=== PATIENT | female | born 1960 | race Two or more races ===

== ENCOUNTER 2019-04-29 15:28 | Emergency (ER) | payer BC ==
[~2019-04-29] VITALS: Ht 157.5 cm; Wt 49.9 kg
--- NOTE | 2019-04-29 16:19 | PHYS DOC ---
Past Medical History Past Medical History: No Pertinent History Past Surgical History: No Surgical History Alcohol Use: None Drug Use: None Adult General Chief Complaint Chief Complaint: CHEST PAIN HPI HPI Patient is a 58 year old [femalewho presents with [right chest wall and right upper quadrant pain, worsening for the past 2 days. Patient reports she has had little bit of nausea on and off for the past 2 days, has not had any vomiting. Reports her pain initially seemed to coming go, but over the last day it has gotten worse is constant. Denies fever, denies recent illness, denies cough. Reports pain seems to increase and when she takes a deep breath, localized on her right chest wall, under her right breast. She has taken ibuprofen for this, which has helped a little bit. Last dose approximately one hour prior to coming to the emergency room. The states she does lift heavy a boxes at work, does not think she pulled anything, but is not sure what is causing her discomfort. States she has never had this problem in the past states no change in the discomfort associated with time of day or after eating.] Review of Systems Review of Systems Constitutional: Denies fever or chills [] Eyes: Denies change in visual acuity, redness, or eye pain [] HENT: Denies nasal congestion or sore throat [] Respiratory: Denies cough or shortness of breath states taking a deep breath causes her to feel short of breath, because of the pain[] Cardiovascular: No additional information not addressed in HPI [] GI: Denies abdominal pain, vomiting, bloody stools or diarrhea, reports she is having some nausea [] : Denies dysuria or hematuria [] Musculoskeletal: Denies back pain or joint pain [] Integument: Denies rash or skin lesions [] Neurologic: Denies headache, focal weakness or sensory changes [] Endocrine: Denies polyuria or polydipsia [] All other systems were reviewed and found to be within normal limits, except as documented in this note. Allergies Allergies Allergies Coded Allergies Type Severity Reaction Last Updated Verified No Known Drug Allergies 04/29/19 No Physical Exam Physical Exam Constitutional: Well developed, well nourished, no acute distress, non-toxic appearance. [] HENT: Normocephalic, atraumatic, bilateral external ears normal, oropharynx moist, no oral exudates, nose normal. [] Eyes: PERRLA, EOMI, conjunctiva normal, no discharge. [] Neck: Normal range of motion, no tenderness, supple, no stridor. [] Cardiovascular:Heart rate regular rhythm, no murmur [] Lungs & Thorax: Bilateral breath sounds clear to auscultation [] Abdomen: Bowel sounds normal, soft, no tenderness, no masses, no pulsatile masses. Increased discomfort on palpation of her right quadrant, positive Lawrence sign[] Skin: Warm, dry, no erythema, no rash. [] Back: No tenderness, no CVA tenderness. [] Extremities: No tenderness, no cyanosis, no clubbing, ROM intact, no edema. [] Neurologic: Alert and oriented X 3, normal motor function, normal sensory function, no focal deficits noted. [] Psychologic: Affect normal, judgement normal, mood normal. [] Current Patient Data Vital Signs Vital Signs Date Time Temp Pulse Resp B/P (MAP) Pulse Ox O2 Delivery O2 Flow Rate FiO2 04/29/19 15:40 99.6 84 16 111/46 (67) 94 Room Air 99.6 Lab Values Laboratory Tests Test 04/29/19 15:45 04/29/19 16:25 White Blood Count 10.3 x10^3/uL (4.0-11.0) Red Blood Count 4.44 x10^6/uL (3.50-5.40) Hemoglobin 12.7 g/dL (12.0-15.5) Hematocrit 37.8 % (36.0-47.0) Mean Corpuscular Volume 85 fL (79-100) Mean Corpuscular Hemoglobin 29 pg (25-35) Mean Corpuscular Hemoglobin Concent 34 g/dL (31-37) Red Cell Distribution Width 13.1 % (11.5-14.5) Platelet Count 237 x10^3/uL (140-400) Neutrophils (%) (Auto) 63 % (31-73) Lymphocytes (%) (Auto) 26 % (24-48) Monocytes (%) (Auto) 10 % (0-9) H Eosinophils (%) (Auto) 1 % (0-3) Basophils (%) (Auto) 0 % (0-3) Neutrophils # (Auto) 6.5 x10^3uL (1.8-7.7) Lymphocytes # (Auto) 2.7 x10^3/uL (1.0-4.8) Monocytes # (Auto) 1.0 x10^3/uL (0.0-1.1) Eosinophils # (Auto) 0.1 x10^3/uL (0.0-0.7) Basophils # (Auto) 0.0 x10^3/uL (0.0-0.2) Sodium Level 140 mmol/L (136-145) Potassium Level 3.6 mmol/L (3.5-5.1) Chloride Level 103 mmol/L (98-107) Carbon Dioxide Level 28 mmol/L (21-32) Anion Gap 9 (6-14) Blood Urea Nitrogen 13 mg/dL (7-20) Creatinine 0.6 mg/dL (0.6-1.0) Estimated GFR (Cockcroft-Gault) 103.4 BUN/Creatinine Ratio 22 (6-20) H Glucose Level 97 mg/dL (70-99) Calcium Level 8.5 mg/dL (8.5-10.1) Total Bilirubin 0.5 mg/dL (0.2-1.0) Aspartate Amino Transferase (AST) 33 U/L (15-37) Alanine Aminotransferase (ALT) 41 U/L (14-59) Alkaline Phosphatase 86 U/L (46-116) Troponin I Quantitative < 0.017 ng/mL (0.000-0.055) Total Protein 7.6 g/dL (6.4-8.2) Albumin 3.8 g/dL (3.4-5.0) Albumin/Globulin Ratio 1.0 (1.0-1.7) Lipase 164 U/L (73-393) Urine Collection Type Unknown Urine Color Yellow Urine Clarity Clear Urine pH 6.0 Urine Specific [place] 1.010 Urine Protein Negative mg/dL (NEG-TRACE) Urine Glucose (UA) Negative mg/dL (NEG) Urine Ketones (Stick) Negative mg/dL (NEG) Urine Blood Negative (NEG) Urine Nitrite Negative (NEG) Urine Bilirubin Negative (NEG) Urine Urobilinogen Dipstick 1.0 mg/dL (0.2 mg/dL) Urine Leukocyte Esterase Small (NEG) Urine RBC 0 /HPF (0-2) Urine WBC 5-10 /HPF (0-4) Urine Squamous Epithelial Cells Few /LPF Urine Bacteria Few /HPF (0-FEW) Laboratory Tests 6/30/19 15:45 Laboratory Tests 04/29/19 15:45 EKG EKG @1540 Dr Duarte- normal EKG, no STEMI[] Radiology/Procedures Radiology/Procedures [] The inspiration is small. There is a mild airspace opacity in the right base. There is no pneumothorax or pleural effusion. The heart is not enlarged. Bilateral cervical ribs are noted. IMPRESSION: 1. Mild infiltrate in the right base. Follow-up to resolution is recommended. 2. Bilateral cervical ribs.. Electronically signed by: Guevara Maria MD (04/29/2019 5:14 PM) [facility] FINDINGS: Sonographic evaluation of the right upper quadrant was performed. The liver appears normal in parenchymal echotexture. There are no focal lesions. The gallbladder is partially decompressed but otherwise unremarkable without stones, pericholecystic fluid or wall thickening. There is no sonographic Lawrence sign. The common duct measures 4 mm. The visualized portions of the head and body of the pancreas reveal no abnormality. The right kidney measures 10.2 cm. Cortical thickness and echogenicity are preserved. There is no hydronephrosis. The visualized portions of the abdominal aorta and inferior vena cava are grossly patent and normal in caliber. IMPRESSION: 1. No cause for pain is identified sonographically. Electronically signed by: Guevara Maria MD (04/29/2019 5:13 PM) [facility] Course & Med Decision Making Course & Med Decision Making Pertinent Labs and Imaging studies reviewed. (See chart for details) [Discussed lab testing and imaging, with symptoms potentially from gall bladder, ribs, or pulmonary. Patient in agreement with testing plan, reports her pain is tolerable at this time, unless she has to take a deep breath. Following lab and imaging, gall bladder excluded. No fracture noted on ribs Vitals within normal limits, SpO2 99-100% with no reported SOA. Believe symptoms related to intercostal discomfort as discomfort increases on inspiration, and negative sonographic lawrence's. had reported some improvement in discomfort with NSAIDS, will plan to continue NSAIDs and follow up Discussed with patient noted mild infiltrate, may be related to her inability to take deep breath, is maintaining SpO2 99-100% without SOA, only discomfort on deep inspiration. ] Dragon Disclaimer Dragon Disclaimer This electronic medical record was generated, in whole or in part, using a voice recognition dictation system. Departure Departure Impression: Primary Impression: Costochondral chest pain Additional Impression: Chest wall pain Disposition: 01 HOME, SELF-CARE Condition: GOOD Patient Instructions: Costochondritis, [id number] Additional Instructions: [place] hablemos, claire ibuprofeno cada 8 horas. Quiero que usted se claire (3) pastillas de 200 mg cada 8 horas para los siguiente 7 melgar. Es mejor que los claire con comida asi no hace dolor de estomago tambien. Descansa de trabajo para un o dos melgar, depende en ortiz dolor Problem Qualifiers LETI CRUZ E ASHLYN Apr 29, 2019 16:19
[2019-04-29 16:23] LABS: BASO % 0 % (0-3); EOS # 0.1 x10^3/uL (0.0-0.7); EOS % 1 % (0-3); HEMATOCRIT 37.8 % (36.0-47.0); HEMOGLOBIN 12.7 g/dL (12.0-15.5); LYMPH # 2.7 x10^3/uL (1.0-4.8); LYMPH % 26 % (24-48); MEAN CORPUSCULAR HEMOGLOBIN 29 pg (25-35); MEAN CORPUSCULAR HGB CONC 34 g/dL (31-37); MEAN CORPUSCULAR VOLUME 85 fL (79-100); MONO % 10 % (0-9); NEUT # 6.5 x10^3uL (1.8-7.7); NEUT % 63 % (31-73); PLATELET COUNT 237 x10^3/uL (140-400); RED BLOOD COUNT 4.44 x10^6/uL (3.50-5.40); RED CELL DISTRIBUTION WIDTH 13.1 % (11.5-14.5); WHITE BLOOD COUNT 10.3 x10^3/uL (4.0-11.0)
[2019-04-29 16:46] LABS: CALCIUM 8.5 mg/dL (8.5-10.1); CREATININE 0.6 mg/dL (0.6-1.0); GFR 103.4; POTASSIUM 3.6 mmol/L (3.5-5.1)
[2019-04-29 16:52] LABS: BILIRUBIN,URINE NEGATIVE (NEG); CLARITY,URINE CLEAR; COLOR,URINE YELLOW; NITRITE,URINE NEGATIVE (NEG); PROTEIN,URINE NEGATIVE (NEG-TRACE)
[2019-04-29 16:57] LABS: ALBUMIN 3.8 g/dL (3.4-5.0); TOTAL BILIRUBIN 0.5 mg/dL (0.2-1.0); TOTAL PROTEIN 7.6 g/dL (6.4-8.2)
[2019-04-29 17:03] LABS: BACTERIA,URINE FEW /HPF (0-FEW); RBC,URINE 0 /HPF (0-2); SQUAMOUS EPITHELIAL CELL,UR FEW /LPF
--- NOTE | 2019-04-29 17:16 | RAD ---
EXAM: RIGHT UPPER QUADRANT ULTRASOUND. HISTORY: Right upper quadrant pain. COMPARISON: None. FINDINGS: Sonographic evaluation of the right upper quadrant was performed. The liver appears normal in parenchymal echotexture. There are no focal lesions. The gallbladder is partially decompressed but otherwise unremarkable without stones, pericholecystic fluid or wall thickening. There is no sonographic Lawrence sign. The common duct measures 4 mm. The visualized portions of the head and body of the pancreas reveal no abnormality. The right kidney measures 10.2 cm. Cortical thickness and echogenicity are preserved. There is no hydronephrosis. The visualized portions of the abdominal aorta and inferior vena cava are grossly patent and normal in caliber. IMPRESSION: 1. No cause for pain is identified sonographically. Electronically signed by: Guevara Maria MD (04/29/2019 5:13 PM) [facility]
--- NOTE | 2019-04-29 17:18 | RAD ---
EXAM: CHEST 2 VIEWS. HISTORY: Chest wall pain. COMPARISON: None. FINDINGS: Frontal and lateral views of the chest are obtained. The inspiration is small. There is a mild airspace opacity in the right base. There is no pneumothorax or pleural effusion. The heart is not enlarged. Bilateral cervical ribs are noted. IMPRESSION: 1. Mild infiltrate in the right base. Follow-up to resolution is recommended. 2. Bilateral cervical ribs.. Electronically signed by: Guevara Maria MD (04/29/2019 5:14 PM) [facility]
[2019-04-29 17:30] VITALS: BP 110/57
--- NOTE | 2019-04-30 07:25 | EKG ---
[facility] [address] [place] [address] Test Date: 2019-04-29 Test Time: 15:40:29 Pat Name: AKASH BLANK Department: Room: Gender: F Greens Picker: : [phone] Requested By: LETI CRUZ Order Number: [id number] Reading MD: Measurements Intervals [place] Rate: 82 P: 26 [place]: 150 QRS: 56 QRSD: 74 T: 28 QT: 352 QTc: 414 Interpretive Statements SINUS RHYTHM NORMAL ECG RI6.01 Unconfirmed report No previous ECG available for comparison
== END 2019-04-29 17:57 | disposition home or self-care (01) ==
LOC: ER 15:28
DX: R07.1 Chest pain on breathing (principal); R10.11 Right upper quadrant pain; R11.0 Nausea
CPT/HCPCS: 36415; 71046; 76705; 80053; 81001; 83690; 84484; 85025; 87086; 93005; 99285-25

== ENCOUNTER → 2019-09-14 | Outpatient (CLI) | payer BC ==
--- NOTE | 2019-09-14 14:03 | RAD ---
AP and Lateral Views of the Chest 09/14/2019 12:00 AM Indication: Chest wall pain. Comparison: Chest radiograph April 29, 2019 Findings: There is no focal consolidation or infiltrate identified. The cardiomediastinal silhouette is within normal limits. There is no evidence of pneumothorax or pleural effusion. No acute osseous abnormalities are identified. Bilateral cervical ribs noted. Impression: 1.No evidence of acute cardiopulmonary process. 2. Bilateral cervical ribs noted. While most commonly asymptomatic, given provided history of chest pain, recommend clinical evaluation for signs and symptoms of thoracic outlet syndrome. Electronically signed by: Chan Sabillon MD (09/14/2019 1:59 PM) [id number]
== END | disposition home or self-care (01) ==
LOC: RAD 13:00 → EDSTATUS 13:14
PROVIDERS: ATTEND Family Medicine
DX: R07.89 Other chest pain (principal)
CPT/HCPCS: 71046

== ENCOUNTER → 2019-10-06 | Outpatient (CLI) | payer BC ==
--- NOTE | 2019-10-08 16:48 | RAD ---
DATE: 10/06/2019 EXAM: DIGITAL SCREEN BILAT W/CAD HISTORY: Routine screening COMPARISON: None. This exam is the baseline. This study was interpreted with the benefit of Computerized Aided Detection (CAD). Breast Density: SCATTERED The breast parenchyma shows scattered fibroglandular densities. Breast parenchyma level B. FINDINGS: No suspicious calcification, distortion, or mass. IMPRESSION: Benign findings. BI-RADS CATEGORY: 1 NEGATIVE RECOMMENDED FOLLOW-UP: 12M 12 MONTH FOLLOW-UP PQRS compliance statement: Patient information was entered into a reminder system with a target due date for the next mammogram. Mammography is a sensitive method for finding small breast cancers, but it does not detect them all and is not a substitute for careful clinical examination. A negative mammogram does not negate a clinically suspicious finding and should not result in delay in biopsying a clinically suspicious abnormality. "Our facility is accredited by the [employer] Mammography Program."
== END | disposition home or self-care (01) ==
LOC: MAMMO 10:14
PROVIDERS: ATTEND Family Medicine
DX: Z12.31 Encounter for screening mammogram for malignant neoplasm of breast (principal)
CPT/HCPCS: 77067